=== PATIENT | female | born 1995 | race Caucasian/White ===

== ENCOUNTER 2020-06-01 08:22 | Emergency (ER) | payer MEDICAID ==
[~2020-06-01] VITALS: Ht 167.6 cm; Wt 55.0 kg
[2020-06-01] MEDS ORDERED: FAMOTIDINE 20 MG/2 ML IVPush ONE (09:00)
[2020-06-01] MEDS ORDERED: PANTOPRAZOLE 40 MG IV IVPush ONE (09:00)
[2020-06-01] MEDS ORDERED: MORPHINE SULFATE 4 MG/ML, 1ML IVPush PRN (09:00)
[2020-06-01] MEDS ORDERED: SODIUM CHLORIDE 0.9% 1,000ML IVBOLUS ONE (09:00)
--- NOTE | 2020-06-01 09:00 | NUR ---
PT HAS CO ABDOMINAL PAIN WE DARK STOOLS AND VOMITING BLOOD. DENIES CP, SOB. DENIES ALCOHOL USE OR HEAVY MEDICATIONS.
[2020-06-01 09:17] LABS: BASOPHILS # (AUTO) 0.02 x10^3/uL (0-0.1); BASOPHILS % (AUTO) 0 % (0-1); EOSINOPHILS # (AUTO) 0.37 x10^3/uL (0-0.4); EOSINOPHILS % (AUTO) 6 % (1-7); LYMPHOCYTES # (AUTO) 1.25 x10^3/uL (1-3.4); LYMPHOCYTES % (AUTO) 21 % (22-44); MD NO; MEAN CORPUSCULAR HEMOGLOBIN 31.6 pg (27.0-34.8); MEAN CORPUSCULAR HGB CONC 32.8 g/dL (32.4-35.8); MEAN CORPUSCULAR VOLUME 96.3 fL (80-100); MEAN PLATELET VOLUME 8.4 fL (7.4-10.4); MONOCYTES # (AUTO) 0.69 x10^3/uL (0.2-0.8); MONOCYTES % (AUTO) 12 % (2-9); NEUTROPHILS # (AUTO) 3.53 x10^3/uL (1.8-6.8); NEUTROPHILS % (AUTO) 60 % (42-75); PLATELET COUNT 220 x10^3/uL (130-400); RED BLOOD COUNT 4.15 x10^6/uL (3.82-5.3); RED CELL DISTRIBUTION WIDTH 11.9 % (9.6-15.2)
[2020-06-01 09:22] LABS: INTERNATIONAL NORMALIZED RATIO 1.09 (0.93-1.1); PROTHROMBIN TIME 11.2 Seconds (9.6-11.5)
[2020-06-01 09:24] LABS: ALANINE AMINOTRANSFERASE 21 U/L (12-78); ANION GAP 5 mmol/L (5-15); CALCIUM 8.9 mg/dL (8.5-10.1); CHLORIDE 114 mmol/L (98-107); CREATININE 0.74 mg/dL (0.55-1.02)
[2020-06-01 09:29] LABS: ALKALINE PHOSPHATASE 48 U/L (45-117); BILIRUBIN,TOTAL 0.3 mg/dL (0.2-1.0)
[2020-06-01] MEDS ORDERED: PANTOPRAZOLE 40 MG IV ONE (09:34)
[2020-06-01] MEDS ORDERED: MORPHINE SULFATE 4 MG/ML, 1ML ONE (09:34)
[2020-06-01] MEDS ORDERED: FAMOTIDINE 20 MG/2 ML ONE (09:34)
[2020-06-01 09:43] VITALS: BP 110/60
--- NOTE | 2020-06-01 10:22 | NUR ---
MEDICATED PER ORDERS, PT AMBULATED TO BATHROOM W STEADY GAIT.
[2020-06-01 11:20] LABS: MICROSCOPIC NOT IND
[2020-06-02] MEDS ORDERED: SERT25TA3 PO (16:52)
[2020-06-02] MEDS ORDERED: GABA-826 PO (16:52)
[2020-06-02] MEDS ORDERED: HYDR50CA2 PO (16:52)
[2020-06-02] MEDS ORDERED: ALBU6.7H8 INH (16:53)
== END 2020-06-01 11:55 | disposition home or self-care (01) ==
LOC: ED 10:24
DX: K29.00 Acute gastritis without bleeding (principal); R10.13 Epigastric pain; R11.2 Nausea with vomiting, unspecified
CPT/HCPCS: 36415; 76700; 80053; 81003; 83690; 84703; 85025; 85610; 86850; 86900; 96361; 96374; 96375; 99284; C9113; J2270; J3490; J7030

== ENCOUNTER 2020-06-01 23:17 | Inpatient (IN) | payer MEDICAID ==
[~2020-06-01] VITALS: Ht 167.6 cm; Wt 58.0 kg
--- NOTE | 2020-06-01 23:24 | NUR ---
EKG PERFORMED IN TRIAGE
[2020-06-02] VITALS (11 sets, daily range): BP systolic 100–128; BP diastolic 58–86
--- NOTE | 2020-06-02 00:08 | NUR ---
REVENUE DIRECTOR: PT. TO ROOM FROM LOBBY AT THIS TIME.
[2020-06-02 00:54] LABS: BASOPHILS # (AUTO) 0.02 x10^3/uL (0-0.1); BASOPHILS % (AUTO) 0 % (0-1); EOSINOPHILS # (AUTO) 0.32 x10^3/uL (0-0.4); EOSINOPHILS % (AUTO) 4 % (1-7); LYMPHOCYTES # (AUTO) 1.52 x10^3/uL (1-3.4); LYMPHOCYTES % (AUTO) 20 % (22-44); MD NO; MEAN CORPUSCULAR HEMOGLOBIN 31.9 pg (27.0-34.8); MEAN CORPUSCULAR HGB CONC 32.9 g/dL (32.4-35.8); MEAN CORPUSCULAR VOLUME 96.8 fL (80-100); MEAN PLATELET VOLUME 8.4 fL (7.4-10.4); MONOCYTES # (AUTO) 0.66 x10^3/uL (0.2-0.8); MONOCYTES % (AUTO) 9 % (2-9); NEUTROPHILS # (AUTO) 5.15 x10^3/uL (1.8-6.8); NEUTROPHILS % (AUTO) 67 % (42-75); PLATELET COUNT 227 x10^3/uL (130-400); RED BLOOD COUNT 4.28 x10^6/uL (3.82-5.3); RED CELL DISTRIBUTION WIDTH 12.3 % (9.6-15.2)
[2020-06-02] MEDS ORDERED: PANTOPRAZOLE 40 MG IV IVPush ONE (01:00)
[2020-06-02] MEDS ORDERED: SODIUM CHLORIDE FLUSH 10ML SYR IVF ONE (01:00)
[2020-06-02 01:02] LABS: ALANINE AMINOTRANSFERASE 24 U/L (12-78); ALBUMIN 4.5 g/dL (3.4-5.0); ANION GAP 8 mmol/L (5-15); CALCIUM 8.8 mg/dL (8.5-10.1); CHLORIDE 110 mmol/L (98-107); CREATININE 0.78 mg/dL (0.55-1.02)
[2020-06-02 01:05] LABS: ALKALINE PHOSPHATASE 57 U/L (45-117); BILIRUBIN,TOTAL 0.4 mg/dL (0.2-1.0); TOTAL PROTEIN 7.9 g/dL (6.4-8.2)
--- NOTE | 2020-06-02 01:12 | NUR ---
PT AMBULATORY TO BATHROOM, STEADY GAIT. PT TO AND FROM IMAGING.
[2020-06-02] MEDS ORDERED: ONDANSETRON 2MG/ML, 2ML ONE ×2 (01:14→14:48)
[2020-06-02] MEDS ORDERED: PANTOPRAZOLE 40 MG IV ONE (01:14)
[2020-06-02] MEDS ORDERED: MORPHINE SULFATE 4 MG/ML, 1ML ONE (01:15)
[2020-06-02] MEDS ORDERED: OMNIPAQUE 350 MG/ML, 100ML BOTTLE ONE (01:20)
[2020-06-02] MEDS ORDERED: ONDANSETRON 2MG/ML, 2ML IVPush ONE (01:30)
[2020-06-02] MEDS ORDERED: MORPHINE SULFATE 4 MG/ML, 1ML IVPush PRN (01:30)
[2020-06-02] MEDS ORDERED: HYDROmorphone 1 MG/ML, 1ML INJ ONE (01:53)
[2020-06-02] MEDS ORDERED: HYDROmorphone 1 MG/ML, 1ML INJ IV ONE (02:00)
[2020-06-02] MEDS ORDERED: SODIUM CHLORIDE 0.9% 1,000 ML IV ONE ×2 (02:04→02:07)
[2020-06-02 02:06] LABS: MICROSCOPIC NOT IND
--- NOTE | 2020-06-02 02:26 | NUR ---
REPORT GIVEN TO MELQUIADES FERNANDES.
[2020-06-02] MEDS ORDERED: ACETAMINOPHEN 325 MG TABLET PO PRN (02:30)
[2020-06-02] MEDS ORDERED: hydrALAzine 20 MG/ML, 1ML IVPush PRN (02:30)
[2020-06-02] MEDS ORDERED: morphine SULFATE 10 MG/ML, 1ML IVPush PRN (02:30)
[2020-06-02] MEDS ORDERED: DOCUSATE 100 MG CAPSULE PO PRN (02:30)
[2020-06-02] MEDS ORDERED: TRAZODONE 50MG TABLET PO PRN (02:30)
[2020-06-02] MEDS ORDERED: HYDROmorphone 1 MG/ML, 1ML INJ IVPush PRN (02:30)
[2020-06-02] MEDS ORDERED: ONDANSETRON 2MG/ML, 2ML IVPush PRN ×2 (02:30)
[2020-06-02] MEDS ORDERED: SODIUM CHLORIDE FLUSH 10ML SYR IVF PRN (02:30)
[2020-06-02] MEDS ORDERED: SODIUM CHLORIDE 0.9% 1,000ML IVBOLUS ONE (02:30)
[2020-06-02] MEDS: SODIUM CHLORIDE 0.9% 1,000 ML IV SCH ×2 (03:19→13:21)
[2020-06-02] MEDS ORDERED: HYDROmorphone 1 MG/ML, 1ML INJ IV PRN (03:30)
--- NOTE | 2020-06-02 05:04 | NUR ---
PAM TURCIOS E - Fall Risk Medication(s) present and receiving anticoagulants.
--- NOTE | 2020-06-02 05:59 | NUR ---
LATE ENTRY SUMMARY NOTE: PT WAS IMMEDIATELY PLACED ON CARDIAC, BP AND O2 MONITORS. PT HAD CALL LIGHT IN REACH AND VISITOR AT BEDSIDE THROUGHOUT STAY IN ER ROOM. PT PRESENTED TO THE ER FOR THE SECOND TIME IN 24 HOURS FOR THE SAME COMPLAINT OF DARK-TARRY STOOLS AND ABD PAIN. PT'S HR NOTED TO BE LOW, PT EXPLAINED SHE WAS A TR[employer] AND FIELD [employer]TH[employer].
[2020-06-02] MEDS ORDERED: DIPHENHYDRAMINE 50 MG/ML, 1ML IVPush ONE (06:00)
[2020-06-02] MEDS ORDERED: ENOXAPARIN 40 MG/0.4 ML SQ SCH (09:00)
[2020-06-02] MEDS: HYDROmorphone 2 MG/ML, 1ML IV PRN (11:49)
[2020-06-02] MEDS: PANTOPRAZOLE 40 MG IV IVPush SCH (13:20)
[2020-06-02 13:41] LABS: OCCULT BLOOD POSITIVE (NEGATIVE)
[2020-06-02] MEDS ORDERED: POTASSIUM CHLORIDE 40 MEQ in SODIUM CHLORIDE 0.9% 500 ML IV ONE (14:00)
[2020-06-02] MEDS: LORazepam 1MG TABLET PO PRN (16:09)
[2020-06-02 16:19] LABS: BASOPHILS # (AUTO) 0.03 x10^3/uL (0-0.1); BASOPHILS % (AUTO) 1 % (0-1); EOSINOPHILS # (AUTO) 0.23 x10^3/uL (0-0.4); EOSINOPHILS % (AUTO) 4 % (1-7); LYMPHOCYTES # (AUTO) 1.82 x10^3/uL (1-3.4); LYMPHOCYTES % (AUTO) 31 % (22-44); MD NO; MEAN CORPUSCULAR HEMOGLOBIN 31.5 pg (27.0-34.8); MEAN CORPUSCULAR HGB CONC 32.9 g/dL (32.4-35.8); MEAN CORPUSCULAR VOLUME 95.7 fL (80-100); MEAN PLATELET VOLUME 8.3 fL (7.4-10.4); MONOCYTES # (AUTO) 0.56 x10^3/uL (0.2-0.8); MONOCYTES % (AUTO) 10 % (2-9); NEUTROPHILS # (AUTO) 3.19 x10^3/uL (1.8-6.8); NEUTROPHILS % (AUTO) 55 % (42-75); PLATELET COUNT 194 x10^3/uL (130-400); RED BLOOD COUNT 3.69 x10^6/uL (3.82-5.3)
[2020-06-02] MEDS ORDERED: SERT25TA3 PO (16:52)
[2020-06-02] MEDS ORDERED: GABA-826 PO (16:52)
[2020-06-02] MEDS ORDERED: HYDR50CA2 PO (16:52)
[2020-06-02] MEDS ORDERED: ALBU6.7H8 INH (16:53)
[2020-06-02] MEDS: FLUOXETINE 10 MG CAP PO SCH (18:01)
[2020-06-02] MEDS: PRAZOSIN 1 MG CAPSULE PO SCH (22:04)
[2020-06-03 01:26] VITALS: BP 112/61
[2020-06-03] MEDS: SODIUM CHLORIDE 0.9% 1,000 ML IV SCH ×2 (01:30→16:44)
[2020-06-03] MEDS: PANTOPRAZOLE 40 MG IV IVPush SCH ×2 (01:52→13:34)
[2020-06-03] MEDS: HYDROmorphone 2 MG/ML, 1ML IV PRN ×3 (01:53→22:33)
[2020-06-03 05:33] LABS: BASOPHILS # (AUTO) 0.03 x10^3/uL (0-0.1); BASOPHILS % (AUTO) 1 % (0-1); EOSINOPHILS # (AUTO) 0.22 x10^3/uL (0-0.4); EOSINOPHILS % (AUTO) 4 % (1-7); LYMPHOCYTES # (AUTO) 1.58 x10^3/uL (1-3.4); LYMPHOCYTES % (AUTO) 31 % (22-44); MD NO; MEAN CORPUSCULAR HEMOGLOBIN 32.3 pg (27.0-34.8); MEAN CORPUSCULAR HGB CONC 33.6 g/dL (32.4-35.8); MEAN CORPUSCULAR VOLUME 95.9 fL (80-100); MEAN PLATELET VOLUME 8.2 fL (7.4-10.4); MONOCYTES # (AUTO) 0.57 x10^3/uL (0.2-0.8); MONOCYTES % (AUTO) 11 % (2-9); NEUTROPHILS # (AUTO) 2.66 x10^3/uL (1.8-6.8); NEUTROPHILS % (AUTO) 53 % (42-75); PLATELET COUNT 168 x10^3/uL (130-400); RED BLOOD COUNT 3.42 x10^6/uL (3.82-5.3); RED CELL DISTRIBUTION WIDTH 12.4 % (9.6-15.2)
[2020-06-03 05:41] LABS: ANION GAP 8 mmol/L (5-15); CALCIUM 8.1 mg/dL (8.5-10.1); CHLORIDE 115 mmol/L (98-107); CREATININE 0.65 mg/dL (0.55-1.02)
[2020-06-03 06:50] VITALS: BP 100/59
[2020-06-03] MEDS: FLUOXETINE 10 MG CAP PO SCH (08:55)
[2020-06-03] MEDS: PROPRANOLOL 10 MG TABLET PO PRN ×2 (10:35→23:55)
[2020-06-03] MEDS: ONDANSETRON 2MG/ML, 2ML IVPush PRN ×2 (10:36→22:33)
[2020-06-03] MEDS ORDERED: ALBUTEROL HFA 90 MCG/SPRAY INH PRN (12:00)
[2020-06-03] MEDS: QUETIAPINE 25MG TABLET PO PRN ×2 (13:34→22:32)
[2020-06-03 14:12] VITALS: BP 146/87
[2020-06-03 20:26] VITALS: BP 124/82
[2020-06-03] MEDS: PRAZOSIN 1 MG CAPSULE PO SCH (22:31)
[2020-06-04 00:06] VITALS: BP 120/74
[2020-06-04] MEDS: SODIUM CHLORIDE 0.9% 1,000 ML IV SCH (02:11)
[2020-06-04] MEDS: PANTOPRAZOLE 40 MG IV IVPush SCH ×2 (02:11→13:15)
[2020-06-04] MEDS: ONDANSETRON 2MG/ML, 2ML IVPush PRN ×2 (03:48→18:10)
[2020-06-04] MEDS: HYDROmorphone 2 MG/ML, 1ML IV PRN ×3 (03:49→21:01)
[2020-06-04 07:41] LABS: ANION GAP 7 mmol/L (5-15); CHLORIDE 117 mmol/L (98-107); CREATININE 0.62 mg/dL (0.55-1.02)
[2020-06-04 08:20] VITALS: BP 104/65
[2020-06-04] MEDS ORDERED: PROPOFOL 10 MG/ML, 20ML ONE (08:48)
[2020-06-04] MEDS ORDERED: MIDAZOLAM 1 MG/ML, 2ML ONE (08:49)
[2020-06-04] MEDS ORDERED: FENTANYL PF 100 MCG/2ML IV PRN (09:30)
[2020-06-04] MEDS ORDERED: LABETALOL 5MG/ML, 20ML IV PRN (09:30)
[2020-06-04] MEDS ORDERED: DIAZEPAM 5 MG/ML, 2ML IVPush PRN (09:30)
[2020-06-04] MEDS ORDERED: ACETAMINOPHEN 325 MG TABLET PO PRN (09:30)
[2020-06-04] MEDS ORDERED: hydrALAzine 20 MG/ML, 1ML IV PRN (09:30)
[2020-06-04] MEDS ORDERED: KETOROLAC 30 MG/1 ML IV PRN (09:30)
[2020-06-04] MEDS ORDERED: HYDROmorphone 2 MG/ML, 1ML IVPush PRN (09:30)
[2020-06-04] MEDS ORDERED: PROMETHAZINE 25 MG/ML, 1ML IV PRN (09:30)
[2020-06-04] MEDS ORDERED: ALBUTEROL SULFATE 2.5 MG/3 ML NPPB PRN (09:30)
[2020-06-04] MEDS ORDERED: OXYcodone 5 MG/5 ML ORAL.SOL UDC PO PRN (09:30)
[2020-06-04] MEDS ORDERED: MEPERIDINE/PF 25MG/0.5ML IVPush PRN (09:30)
[2020-06-04 09:50] VITALS: BP 130/65
[2020-06-04] MEDS: FLUOXETINE 10 MG CAP PO SCH (10:07)
[2020-06-04] MEDS: QUETIAPINE 25MG TABLET PO PRN ×2 (10:14→20:59)
[2020-06-04 14:00] VITALS: BP 113/78
[2020-06-04 19:33] VITALS: BP 124/73
[2020-06-04] MEDS: PRAZOSIN 1 MG CAPSULE PO SCH (20:59)
[2020-06-05] MEDS: ONDANSETRON 2MG/ML, 2ML IVPush PRN ×2 (00:01→12:18)
[2020-06-05] MEDS: PANTOPRAZOLE 40 MG IV IVPush SCH (01:35)
[2020-06-05] MEDS: LORazepam 1MG TABLET PO PRN (01:35)
[2020-06-05] MEDS: HYDROmorphone 2 MG/ML, 1ML IV PRN (01:36)
[2020-06-05 03:58] VITALS: BP 96/57
[2020-06-05 06:01] LABS: ANION GAP 6 mmol/L (5-15); CALCIUM 8.4 mg/dL (8.5-10.1); CHLORIDE 110 mmol/L (98-107)
[2020-06-05 06:08] LABS: BASOPHILS # (AUTO) 0.01 x10^3/uL (0-0.1); BASOPHILS % (AUTO) 0 % (0-1); EOSINOPHILS # (AUTO) 0.26 x10^3/uL (0-0.4); EOSINOPHILS % (AUTO) 3 % (1-7); LYMPHOCYTES # (AUTO) 1.48 x10^3/uL (1-3.4); LYMPHOCYTES % (AUTO) 19 % (22-44); MD NO; MEAN CORPUSCULAR HEMOGLOBIN 31.5 pg (27.0-34.8); MEAN CORPUSCULAR HGB CONC 32.5 g/dL (32.4-35.8); MEAN CORPUSCULAR VOLUME 96.8 fL (80-100); MEAN PLATELET VOLUME 8.6 fL (7.4-10.4); MONOCYTES # (AUTO) 0.61 x10^3/uL (0.2-0.8); MONOCYTES % (AUTO) 8 % (2-9); NEUTROPHILS # (AUTO) 5.28 x10^3/uL (1.8-6.8); NEUTROPHILS % (AUTO) 69 % (42-75); PLATELET COUNT 177 x10^3/uL (130-400); RED BLOOD COUNT 3.61 x10^6/uL (3.82-5.3); RED CELL DISTRIBUTION WIDTH 12.4 % (9.6-15.2)
[2020-06-05 07:32] VITALS: BP 113/65
[2020-06-05] MEDS: FLUOXETINE 10 MG CAP PO SCH (10:55)
[2020-06-05] MEDS ORDERED: PANT40TA3 PO (13:15)
[2020-06-05] MEDS ORDERED: QUET25TA7 PO (13:15)
[2020-06-05] MEDS ORDERED: ONDA8TAB9 PO (13:15)
[2020-06-05] MEDS ORDERED: FLUO10CA14 PO (13:15)
[2020-06-05] MEDS ORDERED: PRAZ1CAP2 PO (13:15)
[2020-06-05] MEDS ORDERED: DOCU100C33 PO (13:15)
[2020-06-05 14:19] VITALS: BP 120/76
== END 2020-06-05 14:35 | disposition home or self-care (01) | DRG 241 ==
LOC: ED 06-02 01:29 → EDIP 06-02 02:41 → 4NE 06-02 02:42 → DCLOUNGE 06-05 14:22
PROVIDERS: ADMIT Student in an Organized Health Care Education/Training Program; ATTEND Internal Medicine
PROC: 0DB68ZX Excision of Stomach, Via Natural or Artificial Opening Endoscopic, Diagnostic (ICD-10-PCS; 2020-06-04)
PROC: 0D768ZZ Dilation of Stomach, Via Natural or Artificial Opening Endoscopic (ICD-10-PCS; 2020-06-04)
PROC: 0DB28ZX Excision of Middle Esophagus, Via Natural or Artificial Opening Endoscopic, Diagnostic (ICD-10-PCS; principal; 2020-06-04 09:30)
DX: K29.71 Gastritis, unspecified, with bleeding (principal); D64.9 Anemia, unspecified; E87.6 Hypokalemia; F12.90 Cannabis use, unspecified, uncomplicated; F43.10 Post-traumatic stress disorder, unspecified; F31.9 Bipolar disorder, unspecified; I10 Essential (primary) hypertension; J45.909 Unspecified asthma, uncomplicated; K21.9 Gastro-esophageal reflux disease without esophagitis; K56.1 Intussusception; K92.0 Hematemesis; N13.30 Unspecified hydronephrosis; Z81.8 Family history of other mental and behavioral disorders; Z03.818 Encounter for observation for suspected exposure to other biological agents ruled out; Z83.3 Family history of diabetes mellitus; Z88.0 Allergy status to penicillin; Z88.1 Allergy status to other antibiotic agents; Z88.5 Allergy status to narcotic agent
CPT/HCPCS: 36415; 70450; 73523; 74177; 74250; 76770; 80048; 80053; 81003; 82024; 82272; 82533; 82962; 83690; 83735; 85025; 87635; 88305; 93005; G0378; J1170; J1650; J2250; J2405; J2704; J3480; Q9967; C9113; J1200; J7030; J7040

== ENCOUNTER 2020-06-17 16:14 | Observation (INO) | payer MEDICAID ==
[~2020-06-17] VITALS: Ht 167.6 cm; Wt 57.6 kg
[~2020-06-17 16:14] MED LIST: ALBU6.7H8 INH; DOCU100C33 PO; FLUO10CA14 PO; GABA-826 PO; HYDR50CA2 PO; ONDA8TAB9 PO; PANT40TA3 PO; PRAZ1CAP2 PO; QUET25TA7 PO; SERT25TA3 PO
[2020-06-17 16:50] LABS: BASOPHILS # (AUTO) 0.04 x10^3/uL (0-0.1); BASOPHILS % (AUTO) 0 % (0-1); EOSINOPHILS # (AUTO) 0.11 x10^3/uL (0-0.4); EOSINOPHILS % (AUTO) 1 % (1-7); LYMPHOCYTES # (AUTO) 1.66 x10^3/uL (1-3.4); LYMPHOCYTES % (AUTO) 19 % (22-44); MD NO; MEAN CORPUSCULAR HGB CONC 33.6 g/dL (32.4-35.8); MEAN PLATELET VOLUME 8.8 fL (7.4-10.4); MONOCYTES # (AUTO) 0.83 x10^3/uL (0.2-0.8); MONOCYTES % (AUTO) 10 % (2-9); NEUTROPHILS % (AUTO) 70 % (42-75); PLATELET COUNT 240 x10^3/uL (130-400); RED BLOOD COUNT 4.23 x10^6/uL (3.82-5.3); RED CELL DISTRIBUTION WIDTH 12.2 % (9.6-15.2)
[2020-06-17 17:06] LABS: ALBUMIN 4.3 g/dL (3.4-5.0); ANION GAP 9 mmol/L (5-15); CALCIUM 9.3 mg/dL (8.5-10.1); CHLORIDE 110 mmol/L (98-107)
[2020-06-17 17:12] LABS: ALANINE AMINOTRANSFERASE 45 U/L (12-78); ALKALINE PHOSPHATASE 61 U/L (45-117); CREATININE 0.78 mg/dL (0.55-1.02); TOTAL PROTEIN 7.9 g/dL (6.4-8.2)
--- NOTE | 2020-06-17 19:10 | NUR ---
Break RN: assumed care of pt on behalf of primary RN for lunch break only. urine sample collected and sent. pt sitting up on gurney in no apparent distress. updated on POC. friend at bedside
[2020-06-17 19:22] LABS: MICROSCOPIC NOT IND
[2020-06-17] MEDS ORDERED: ONDANSETRON 2MG/ML, 2ML IVPush ONE (20:00)
[2020-06-17] MEDS ORDERED: SODIUM CHLORIDE 0.9% 1,000ML IVBOLUS ONE (20:00)
[2020-06-17] MEDS ORDERED: HYDROmorphone 2 MG/ML, 1ML IVPush PRN (20:00)
[2020-06-17] MEDS ORDERED: ONDANSETRON 2MG/ML, 2ML ONE (20:04)
[2020-06-17] MEDS ORDERED: HYDROmorphone 1 MG/ML, 1ML INJ ONE (20:04)
--- NOTE | 2020-06-17 20:39 | NUR ---
BACK FROM CT, APPEARS COMFORTABLE, VSS, REPORTS 4/10. AIDET PROVIDED.
[2020-06-17] MEDS ORDERED: OMNIPAQUE 350 MG/ML, 100ML BOTTLE ONE (20:55)
--- NOTE | 2020-06-17 22:34 | NUR ---
PT WAS ABLE TO GET SELF DRESSED AND AMBULATE SAFELY AROUND ROOM AND JAY, PT WAS DISCHARGED PER DR GUZMAN. AFTER DISCHARGE PT WAS IN THE PARKING LOT WITH HER FRIEND WAITING FOR HER RIDE. PT REPORTS SHE FELT DIZZY, HER FRIEND HELPED HER SIT DOWN. PT BROUGHT BACK INTO THE ER. EKG DONE. NSR NOTED. DR GUZMAN AWARE. VS STABLE. PT IS A&OX4. CALL LIGHT IN PLACE.
[2020-06-17] MEDS ORDERED: ONDANSETRON ODT 4 MG ONE (23:16)
[2020-06-17] MEDS ORDERED: ONDANSETRON ODT 4 MG PO ONE (23:30)
[2020-06-17] MEDS ORDERED: PROMETHAZINE 25 MG/ML, 1ML ONE (23:47)
--- NOTE | 2020-06-17 23:53 | NUR ---
C/O WORSENING OF N/V POST ZOFRAN. MEDICATED PER ORDER WITH [facility].
[2020-06-18] MEDS ORDERED: PROMETHAZINE 25 MG/ML, 1ML IM ONE
[2020-06-18] MEDS ORDERED: POLYETHYLENE GLYCOL 17 GM PACKET PO PRN (00:30)
[2020-06-18] MEDS ORDERED: BISACODYL 10 MG SUPP PR PRN (00:30)
[2020-06-18] MEDS ORDERED: ONDANSETRON 2MG/ML, 2ML IVPush PRN (00:30)
[2020-06-18] MEDS ORDERED: ONDANSETRON ODT 4 MG PO PRN (00:30)
[2020-06-18] MEDS ORDERED: PROMETHAZINE 25 MG/ML, 1ML IM PRN (00:30)
[2020-06-18] MEDS ORDERED: ACETAMINOPHEN 325 MG TABLET PO PRN (00:30)
--- NOTE | 2020-06-18 00:57 | NUR ---
PT RESTING IN ROOM. VS STABLE. NO ACUTE DISTRESS NOTED. CALL LIGHT IN PLACE WILL CONTNUE TO MONITOR.
[2020-06-18] MEDS ORDERED: KETOROLAC 30 MG/1 ML IVPush PRN (01:00)
[2020-06-18] MEDS ORDERED: QUETIAPINE 25MG TABLET PO PRN (01:00)
[2020-06-18 01:29] VITALS: BP 121/71
[2020-06-18] MEDS: D5%-0.45% NACL 1,000 ML IV SCH ×2 (01:36→10:08)
[2020-06-18] MEDS: PRAZOSIN 1 MG CAPSULE PO SCH ×2 (01:36→21:36)
[2020-06-18 07:57] VITALS: BP 104/59
[2020-06-18] MEDS: SENNA/DOCUSATE TABLET PO SCH (08:13)
[2020-06-18] MEDS: PANTOPRAZOLE 40MG TABLET PO SCH (08:13)
[2020-06-18] MEDS ORDERED: FLUOXETINE 10 MG CAP PO SCH (09:00)
[2020-06-18] MEDS ORDERED: KETOROLAC 30 MG/1 ML IVPush ONE (10:30)
[2020-06-18 11:42] LABS: CLOSTRIDIUM DIFFICILE ANTIGEN NEGATIVE; CLOSTRIDIUM DIFFICILE TOXIN NEGATIVE (Negative)
[2020-06-18] MEDS: DIPHENHYDRAMINE 25 MG CAPSULE PO PRN (13:44)
[2020-06-18 14:00] VITALS: BP 119/78
[2020-06-18 20:24] VITALS: BP 109/73
[2020-06-19 00:47] VITALS: BP 111/67
[2020-06-19 05:03] LABS: BASOPHILS # (AUTO) 0.05 x10^3/uL (0-0.1); BASOPHILS % (AUTO) 1 % (0-1); EOSINOPHILS # (AUTO) 0.31 x10^3/uL (0-0.4); EOSINOPHILS % (AUTO) 6 % (1-7); LYMPHOCYTES % (AUTO) 31 % (22-44); MD NO; MEAN CORPUSCULAR HEMOGLOBIN 32.1 pg (27.0-34.8); MEAN CORPUSCULAR HGB CONC 33.9 g/dL (32.4-35.8); MEAN PLATELET VOLUME 8.9 fL (7.4-10.4); MONOCYTES # (AUTO) 0.74 x10^3/uL (0.2-0.8); MONOCYTES % (AUTO) 13 % (2-9); NEUTROPHILS # (AUTO) 2.84 x10^3/uL (1.8-6.8); NEUTROPHILS % (AUTO) 49 % (42-75); PLATELET COUNT 178 x10^3/uL (130-400); RED BLOOD COUNT 3.53 x10^6/uL (3.82-5.3); RED CELL DISTRIBUTION WIDTH 12.7 % (9.6-15.2)
[2020-06-19 05:12] LABS: CHLORIDE 113 mmol/L (98-107)
[2020-06-19 05:21] LABS: ALANINE AMINOTRANSFERASE 30 U/L (12-78); ALBUMIN 3.2 g/dL (3.4-5.0); ALKALINE PHOSPHATASE 45 U/L (45-117); ANION GAP 4 mmol/L (5-15); BILIRUBIN,TOTAL 0.7 mg/dL (0.2-1.0); CALCIUM 8.2 mg/dL (8.5-10.1); CHOL/HDL RATIO 2.7; CHOLESTEROL, TOTAL 99 mg/dL (140-239); CREATININE 0.57 mg/dL (0.55-1.02); HDL CHOL % 37 % (28-40); HDL CHOLESTEROL (DIRECT) 37 mg/dL (40-60); LDL CHOLESTEROL,CALCULATED 45 mg/dL (54-169); LDL/HDL RATIO 1.2 (0.5-3.0); TOTAL PROTEIN 5.8 g/dL (6.4-8.2); TRIGLYCERIDES 84 mg/dL (50-200); VLDL CHOLESTEROL 17 mg/dL (0-25)
[2020-06-19 07:25] VITALS: BP 101/64
[2020-06-19] MEDS: SENNA/DOCUSATE TABLET PO SCH (09:00)
[2020-06-19] MEDS: FLUOXETINE HCL 20 MG CAPSULE PO SCH (10:15)
[2020-06-19] MEDS: DIPHENHYDRAMINE 25 MG CAPSULE PO PRN (10:15)
[2020-06-19] MEDS: PANTOPRAZOLE 40MG TABLET PO SCH (10:15)
[2020-06-19 12:16] VITALS: BP 111/70
[2020-06-19] MEDS: OXYcodone/APAP 5/325MG TABLET PO PRN ×2 (13:09→20:55)
[2020-06-19 18:55] VITALS: BP 103/71
[2020-06-19] MEDS: PRAZOSIN 1 MG CAPSULE PO SCH ×2 (20:55→21:23)
[2020-06-20 00:25] VITALS: BP 96/61
[2020-06-20 06:50] VITALS: BP 103/62
[2020-06-20] MEDS: FLUOXETINE HCL 20 MG CAPSULE PO SCH (08:21)
[2020-06-20] MEDS: PANTOPRAZOLE 40MG TABLET PO SCH (08:21)
[2020-06-20] MEDS: OXYcodone/APAP 5/325MG TABLET PO PRN (08:28)
[2020-06-20] MEDS: SENNA/DOCUSATE TABLET PO SCH (08:34)
[2020-06-20] MEDS ORDERED: metroNIDAZOLE 500 MG TABLET PO SCH (09:30)
[2020-06-20] MEDS ORDERED: CLARITHROMYCIN 250 MG/5 ML PO SCH (09:30)
[2020-06-20] MEDS ORDERED: CLARITHROMYCIN 500 MG TABLET PO SCH (10:00)
[2020-06-20] MEDS ORDERED: METR500T PO (11:48)
[2020-06-20] MEDS ORDERED: PANT40TA6 PO (11:48)
[2020-06-20] MEDS ORDERED: CLAR-14 PO (11:48)
[2020-06-20] MEDS ORDERED: DIPH25CA26 PO (11:48)
[2020-06-20] MEDS ORDERED: ACET325T26 PO (11:48)
[2020-06-20] MEDS ORDERED: FLUO20CA23 PO (11:48)
[2020-06-20] MEDS ORDERED: PANTOPRAZOLE 40MG TABLET PO SCH (16:00)
== END 2020-06-20 16:10 | disposition home or self-care (01) ==
LOC: ED 20:07 → EDIP 06-18 00:29 → 3N 06-18 01:20 → 4EST 06-18 18:23
PROVIDERS: ADMIT Internal Medicine; ATTEND Internal Medicine
DX: R10.84 Generalized abdominal pain (principal); Z20.828 Contact with and (suspected) exposure to other viral communicable diseases; R55 Syncope and collapse; R11.2 Nausea with vomiting, unspecified; F12.10 Cannabis abuse, uncomplicated; F31.9 Bipolar disorder, unspecified; F39 Unspecified mood [affective] disorder; F43.10 Post-traumatic stress disorder, unspecified; K29.70 Gastritis, unspecified, without bleeding; N83.292 Other ovarian cyst, left side; Z79.899 Other long term (current) drug therapy
CPT/HCPCS: 36415; 74177; 76830; 80053; 80061; 81003; 82962; 83605; 83735; 84443; 84703; 85025; 87324; 87635; 93005; 96361; 96372; 96374; 96375; 96376; 99285; G0378; J1170; J1885; J2405; J2550; J7030; Q0162; Q0163; Q9967

== ENCOUNTER 2021-04-10 11:32 | Emergency (ER) | payer MEDICAID ==
[~2021-04-10] VITALS: Ht 167.6 cm; Wt 54.9 kg
[~2021-04-10 11:32] MED LIST changes: +ACET325T26 PO; +CLAR-14 PO; +DIPH25CA26 PO; -FLUO10CA14 PO; +FLUO10CA15 PO; +FLUO20CA23 PO; +METR500T PO; +PANT40TA6 PO; +SERT-331 PO; -SERT25TA3 PO
--- NOTE | 2021-04-10 12:02 | NUR ---
Epigastric pain radiating to umbilicus since 0200, +N/V/D +hx of intussuseption of small bowel Appears well significant marijuana use (self medicates for anxiety) last meal lat night at 2300pm Placed on registered nurse cardiac
[2021-04-10] MEDS ORDERED: ONDANSETRON 2MG/ML, 2ML ONE (12:24)
[2021-04-10] MEDS ORDERED: HYDROmorphone 1 MG/ML, 1ML INJ ONE (12:24)
[2021-04-10] MEDS ORDERED: SODIUM CHLORIDE 0.9% 1,000 ML IV ONE (12:30)
[2021-04-10] MEDS ORDERED: HYDROmorphone 1 MG/ML, 1ML INJ IV ONE (12:30)
[2021-04-10] MEDS ORDERED: SODIUM CHLORIDE FLUSH 10ML SYR IVF ONE (12:30)
[2021-04-10] MEDS ORDERED: ONDANSETRON 2MG/ML, 2ML IVPush ONE (12:30)
--- NOTE | 2021-04-10 12:33 | NUR ---
TASK RN: MEDS/IVF. DAX. ALLAN.
[2021-04-10 12:37] LABS: BASOPHILS % (AUTO) 1 % (0-1); EOSINOPHILS % (AUTO) 5 % (1-7); LYMPHOCYTES % (AUTO) 30 % (22-44); MEAN CORPUSCULAR HEMOGLOBIN 32.3 pg (27.0-34.8); MEAN CORPUSCULAR HGB CONC 35.1 g/dL (32.4-35.8); MEAN PLATELET VOLUME 9.1 fL (7.4-10.4); MONOCYTES % (AUTO) 9 % (2-9); NEUTROPHILS % (AUTO) 56 % (42-75); PLATELET COUNT 208 x10^3/uL (130-400); RED BLOOD COUNT 4.41 x10^6/uL (3.82-5.3); RED CELL DISTRIBUTION WIDTH 11.9 % (9.6-15.2)
[2021-04-10] MEDS ORDERED: OMNIPAQUE 350 MG/ML, 100ML BOTTLE ONE (12:40)
[2021-04-10 12:45] LABS: MICROSCOPIC INDICATED
[2021-04-10 12:47] LABS: ALANINE AMINOTRANSFERASE 13 U/L (12-78); ALBUMIN 4.1 g/dL (3.4-5.0); ANION GAP 3 mmol/L (5-15); CALCIUM 8.8 mg/dL (8.5-10.1); CHLORIDE 111 mmol/L (98-107); CREATININE 0.69 mg/dL (0.55-1.02)
[2021-04-10 12:50] LABS: ALKALINE PHOSPHATASE 53 U/L (45-117); BILIRUBIN,TOTAL 0.9 mg/dL (0.2-1.0); TOTAL PROTEIN 7.1 g/dL (6.4-8.2)
--- NOTE | 2021-04-10 13:36 | NUR ---
TO CT SCAN
--- NOTE | 2021-04-10 14:00 | NUR ---
with reassessment patient with continued and pain rated at 8/10. Exam not correlative (appears well) ERP made aware that all testing resulted
[2021-04-10 14:21] VITALS: BP 137/82
== END 2021-04-10 14:23 | disposition home or self-care (01) ==
LOC: ED 12:12
DX: R10.84 Generalized abdominal pain (principal); R11.2 Nausea with vomiting, unspecified; R19.7 Diarrhea, unspecified
CPT/HCPCS: 36415; 74177; 80053; 81001; 83605; 83690; 85025; 87086; 93005; 96361; 96374; 96375; 99285; J1170; J2405; J7030; Q9967

== ENCOUNTER 2021-05-23 11:03 | Emergency (ER) | payer MEDICAID ==
[~2021-05-23] VITALS: Ht 167.6 cm; Wt 57.4 kg
--- NOTE | 2021-05-23 12:35 | NUR ---
WHIP SAWYER: PT TO ROOM FROM FAM OLSON. PT TO BR TO ATTEMPT TO PROVIDE URINE SPECIMAN.
--- NOTE | 2021-05-23 12:40 | NUR ---
collected urine and sent to lab clean catch. patient arrives with lower abd pain, n/v, coughing up blood reports for two hours. patient has hx entusuception of small bowel diagnosed here a year ago according to her.
[2021-05-23 13:29] LABS: MICROSCOPIC INDICATED
[2021-05-23] MEDS ORDERED: HYDROmorphone 2 MG/ML, 1ML ONE (13:31)
[2021-05-23] MEDS ORDERED: ONDANSETRON 2MG/ML, 2ML ONE (13:31)
[2021-05-23 13:32] LABS: BASOPHILS % (AUTO) 1 % (0-1); EOSINOPHILS % (AUTO) 3 % (1-7); LYMPHOCYTES % (AUTO) 22 % (22-44); MEAN CORPUSCULAR HEMOGLOBIN 31.9 pg (27.0-34.8); MEAN CORPUSCULAR HGB CONC 34.6 g/dL (32.4-35.8); MEAN PLATELET VOLUME 8.4 fL (7.4-10.4); MONOCYTES % (AUTO) 8 % (2-9); NEUTROPHILS % (AUTO) 66 % (42-75); PLATELET COUNT 236 x10^3/uL (130-400); RED BLOOD COUNT 4.44 x10^6/uL (3.82-5.3); RED CELL DISTRIBUTION WIDTH 11.8 % (9.6-15.2)
[2021-05-23] MEDS ORDERED: FAMOTIDINE 20 MG/2 ML ONE (13:32)
[2021-05-23 13:37] LABS: ALBUMIN 3.9 g/dL (3.4-5.0); CALCIUM 9.1 mg/dL (8.5-10.1); CHLORIDE 108 mmol/L (98-107)
[2021-05-23 13:45] LABS: ALANINE AMINOTRANSFERASE 38 U/L (12-78); ALKALINE PHOSPHATASE 58 U/L (45-117); ANION GAP 3 mmol/L (5-15); BILIRUBIN,TOTAL 0.5 mg/dL (0.2-1.0); CREATININE 0.65 mg/dL (0.55-1.02); TOTAL PROTEIN 7.3 g/dL (6.4-8.2)
[2021-05-23] MEDS ORDERED: ONDANSETRON 2MG/ML, 2ML IVPush ONE (14:00)
[2021-05-23] MEDS ORDERED: FAMOTIDINE 20 MG/2 ML IVPush ONE (14:00)
[2021-05-23] MEDS ORDERED: HYDROmorphone 1 MG/ML, 1ML INJ IV ONE (14:00)
[2021-05-23] MEDS ORDERED: SODIUM CHLORIDE 0.9% 1,000ML IVBOLUS ONE (14:00)
--- NOTE | 2021-05-23 14:23 | NUR ---
patient still has nausea, but pain improved to 3/10
[2021-05-23] MEDS ORDERED: OMNIPAQUE 350 MG/ML, 100ML BOTTLE ONE (14:37)
[2021-05-23 14:49] VITALS: BP 112/67
--- NOTE | 2021-05-23 15:13 | NUR ---
REPORT RECEIVED FROM MELQUIADES LEA. FIRST CONTACT WITH PT. [facility]. REPORTS CONTINUED N/V DESPITE MEDS. CHART UP FOR RECHECK, AWAITING FURTHR ORDERS
--- NOTE | 2021-05-23 15:59 | NUR ---
DC EDUCATION PROVIDED, PT DEMONSTRATES UNDERSTANDING. PT AMBULATED STEADILY TO DC WITH RN.
== END 2021-05-23 16:01 | disposition home or self-care (01) ==
LOC: ED 12:53
DX: R10.12 Left upper quadrant pain (principal); Z20.822 Contact with and (suspected) exposure to COVID-19; R05 Cough; R10.84 Generalized abdominal pain; R11.2 Nausea with vomiting, unspecified; R00.1 Bradycardia, unspecified
CPT/HCPCS: 36415; 71045; 74177; 80053; 81001; 83690; 84703; 85025; 87086; 96361; 96374; 96375; 99285; J1170; J2405; J7030; Q9967; U0003; U0005